=== PATIENT | female | born 1950 | race Caucasian/White ===

== ENCOUNTER 2020-07-26 10:29 | Outpatient (CLI) | payer MEDICARE, OTHER, SELFPAY ==
--- NOTE | ~2020-07-26 | MM_ITS ---
EXAMINATION: MM screening shivani BI w collin HISTORY: Screening mammogram TECHNIQUE: Craniocaudal and mediolateral oblique 3-D tomosynthesis images were obtained and synthetic 2-D images were generated. CAD analysis was submitted and interpreted. COMPARISON: 10/01/2018, 06/17/2017, 04/30/2016 bilateral digital screening mammogram examinations BREAST PARENCHYMAL COMPOSITION: There are scattered areas of fibroglandular density. FINDINGS: There is no evidence of suspicious mass, calcification, or architectural distortion to sugg est malignancy in either breast. There has been no suspicious interval change. IMPRESSION: 1. No mammographic evidence of malignancy. 2. Recommend routine screening mammography in one year. BI-RADS Category 1: Negative Reviewed, dictated and finalized at location A. SFORMER MAKER
== END 2020-07-26 10:30 | disposition home or self-care (01) ==
LOC: ANHIMG 10:39
PROVIDERS: PCP Family Medicine; Visit Provider Obstetrics & Gynecology
DX: Z12.31 Encounter for screening mammogram for malignant neoplasm of breast (principal)
CPT/HCPCS: 77063; 77067

== ENCOUNTER 2021-10-28 13:23 | Emergency (ER) | payer MEDICARE, OTHER, SELFPAY ==
--- NOTE | ~2021-10-28 | CT_ITS ---
EXAMINATION: CT abdomen pelvis w con EXAM DATE: 10/28/2021 15:04 INDICATION: abdominal pain , body aches. Nausea and diarrhea fever and chills. TECHNIQUE: Spiral CT of the abdomen and pelvis was performed following intravenous injection of 100 m L Omnipaque 350. Axial, coronal and sagittal images of the abdomen and pelvis were reviewed. The do se-length product (DLP) for this examination was 832.38 mGy-cm. The exposure was tailored according to patient size (auto mA exposure control), and iterative reconstruction (ASIR) was used as additiona l dose reduction technique. There is no prior study for comparison. FINDINGS: The liver, spleen, adrenal glands and pancreas are unremarkable. Gallbladder is unremarkab le. No biliary obstruction. Portal and splenic veins are patent. Kidneys enhance symmetrically. T here is no hydronephrosis. Uterus and bladder poorly visualized due to dense metallic artifact from bilateral hip replacements. There is no retroperitoneal or pelvic lymphadenopathy. Small umbilical fa t-containing hernia. The appendix is normal. The stomach and small bowel are unremarkable. There is ascending and transve rse colonic fluid, possible gastroenteritis. No free intraperitoneal gas. The heart is normal in si ze. There are no pericardial or pleural effusions. The lung bases are unremarkable. There are no o steoblastic or osteolytic lesions identified. IMPRESSION: 1. Possible gastroenteritis. Reviewed, dictated and finalized at location A. SOMNOGRAPHIC TECHNOLOGIST
--- NOTE | ~2021-10-28 | CT_ITS ---
EXAMINATION: CT brain wo con INDICATION: Headache COMPARISON: None TECHNIQUE: Standard unenhanced head CT. The dose-length product (DLP) was 605.33 mGy-cm. The mA was a djusted according to patient size. Iterative reconstruction technique was employed. FINDINGS: There is no acute intraparenchymal hemorrhage. No evidence of mass lesion. No evidence of a cute infarction. There is mild periventricular and subcortical hypodensity probably related to small vessel ischemic disease. There is mild prominence of the sulci and ventricles related to cerebral atr ophy. Intracranial calcified cerebral atherosclerosis is noted. There are no extra-axial collections. There is no mass effect or midline shift. The orbits and soft tissues are unremarkable. The visualiz ed sinuses and mastoid air cells are well aerated. IMPRESSION: 1. No acute intracranial abnormality. 2. Age related findings. Reviewed, dictated and finalized at location F. COLLECTOR ORE CRUSHING
[2021-10-28 13:27] VITALS: BP 104/51; PULSE 91; RESP 16; TEMP 36.9; O2SAT 99
[2021-10-28] MEDS: SODIUM CHLORIDE 0.9% IV 1,000 ML 999 ML IV CONT ×2 (13:47→15:35)
--- NOTE | 2021-10-28 13:52 | ED.NAVMDI ---
HPI - Nausea/Vomiting/Diarrhea General Chief complaint: Nausea/Vomiting/Diarrhea Stated complaint: painting/body aches and spasms, vomiting Time Seen by Provider: 10/28/21 13:31 Source: patient History of Present Illness HPI Narrative: Patient presents with not feeling well. Reports not been feeling well for the past 3 days. She for headache as she has a history of migraines but also reports stomach pain from the inside . Reports associated diarrhea diffuse body aches and muscle cramping. She denies any urinary symptoms she reports a decrease in appetite and reports a fever. Denies cough or congestion she took a home Covid test and was negative Related Data Home Medications Medication Instructions Recorded Confirmed alprazolam 0.5 mg tablet 0.5 mg PO DAILY 08/05/19 02/15/21 clobetasol 0.05 % topical cream 1 applic TOPICAL BID 08/05/19 02/15/21 multivitamin 1 tablet PO DAILY 08/05/19 02/15/21 tizanidine 4 mg capsule 4 mg PO TID PRN 08/05/19 02/15/21 Allergies Allergy/AdvReac Type Severity Reaction Status Date / Time naproxen Allergy Unknown Pt does Verified 08/15/21 13:55 not remember reaction Review of Systems Review of Systems: CONSTITUTIONAL: Fevers and chills EYES: Denies visual changes, redness, or discharge. ENT: Denies rhinorrhea, congestion, sore throat, or otalgia. CARDIOVASCULAR: Denies chest pain, palpitations, or edema. RESPIRATORY: Denies cough or dyspnea. GASTROINTESTINAL: Reports abdominal pain and diarrhea GENITOURINARY: Denies dysuria or hematuria. SKIN: Denies rash or itching. MUSCULOSKELETAL: Denies back pain, joint pain. NEUROLOGIC: Denies, numbness, dizziness, or weakness. PSYCHIATRIC: Denies anxiety or depression. All systems reviewed & are unremarkable except as noted in HPI and below PMFSH Surgical History Surgical History H/O dilation and curettage History of hip replacement History of hip replacement Hx of tonsillectomy Family History Family History Mother Family history of lung cancer, Onset Age: 78 Father Family history of type 2 diabetes mellitus, Onset Age: 63 Social History Social History Smoking status: Never smoker Alcohol intake: never Exam Narrative: GENERAL: Well-appearing, well-nourished, and in no acute distress. HEAD: Normocephalic, atraumatic. EYES: PERRLA and EOMI. ENT: Nares clear, no rhinorrhea or epistaxis. Mucous membranes moist. NECK: Supple. No masses. No JVD CHEST: Clear to auscultation. No respiratory distress. No wheezes rales or rhonchi HEART: Regular rate and rhythm. No murmur heard. Normal peripheral pulses. ABDOMEN: Soft, nontender, nondistended, normal active bowel sounds. EXTREMITIES: Normal range of motion. No edema. SKIN: Warm, dry, no rash. NEURO: No nerves II through XII are intact patient is 5 out of 5 strength in all extremities sensation intact to light touch in all extremities alert and oriented x3. PSYCH: Normal mood and affect. Course Reevaluation(s) Reevaluation #1: Patient appears to be improved results and plan reviewed with patient patient is comfortable outpatient plan. Date: 10/28/21 Time: 15:42 Vital Signs Vital signs: Vital Signs Temperature 36.9 C 10/28/21 13:27 Pulse Rate 91 10/28/21 13:27 Respiratory Rate 16 10/28/21 13:27 Blood Pressure 104/51 L 10/28/21 13:27 Pulse Oximetry 99 10/28/21 13:27 Temperature 36.9 C 10/28/21 13:27 Pulse Rate 91 10/28/21 13:27 Respiratory Rate 16 10/28/21 13:27 Blood Pressure 104/51 L 10/28/21 13:27 Pulse Oximetry 99 10/28/21 13:27 MDM - Nausea/Vomiting/Diarrhea MDM Narrative Medical decision making narrative: H&P as above, vss, pt looks clinically well, exam reassuring, labs clinically unremarkable, img with concern for gastroenteritis, additional labs/img considered, s
[2021-10-28 14:01] LABS: Basophils Percent Auto 0.5 % (0.2-1.2); Eosinophils Percent Auto 0.1 % (0-4.4); Hematocrit 35.6 % (37.0-47.0); Hemoglobin 12.3 g/dL (12.0-15.0); Immature Granulocyte Absolute 0.05 K/mm3 (0.00-0.031); Immature Granulocyte Percent A 0.6 % (0-0.5); Lymphocytes Absolute Auto 0.74 K/mm3 (0.9-3.2); Lymphocytes Percent Auto 8.5 % (18.3-44.2); Mean Corpuscular HGB Conc 34.6 g/dl (32-36); Mean Corpuscular Hemoglobin 31.2 pg (26-34); Mean Corpuscular Volume 90.4 fl (80-100); Mean Platelet Volume 9.9 fl (7.4-10.4); Monocytes Absolute Auto 0.9 K/mm3 (0.1-0.6); Monocytes Percent Auto 10.7 % (2.6-8.5); Neutrophils Absolute Auto 6.9 K/mm3 (1.3-6.7); Neutrophils Percent Auto 79.6 % (45.5-73.1); Platelet Count Result 173 k/mm3 (150-375); Red Blood Count 3.94 M/mm3 (4.2-5.4); Red Cell Distribution Width 13.2 % (11.5-14.5); White Blood Count 8.7 K/mm3 (4.5-10.0)
[2021-10-28 14:10] LABS: Alanine Aminotransferase 25 U/L (4-35); Albumin Level 3.9 g/dL (3.5-5.1); Alkaline Phosphatase 93 U/L (38-126); Anion Gap 12 mmol/L (8-16); Aspartate Amino Transferase 39 U/L (14-36); Bilirubin,Total 0.6 mg/dL (0.2-1.3); Blood Urea Nitrogen 8 mg/dL (7-17); Calcium 9.1 mg/dL (8.4-10.2); Carbon Dioxide 24 mmol/L (22-30); Chloride 96 mmol/L (98-107); Estimated CRCL calculation 68 ml/min; Estimated Glomerular Filt Rate > 60; Glucose 132 mg/dL (65-110); Lipase 54 U/L (23-300); Potassium 3.1 mmol/L (3.4-5.0); Sodium 132 mmol/L (137-145)
[2021-10-28 14:58] LABS: Add Urine Microscopic? YES; Appearance Urine Clear (Clear); Bilirubin Urine Negative (Negative); Blood Urine 1+ (Negative); Color Urine Amber (Yellow); Glucose Urine UA Negative (Negative); Hyaline Casts Urine 20-29 /lpf; Ketones Urine Trace mg/dL (Negative); Leukocyte Esterase Ur Negative LEU/UL (Negative); Mucus Urine Rare /lpf; Nitrate Urine Negative (Negative); Protein Urine 2+ mg/dL (Negative); Specific Grav Ur 1.029 (1.001-1.035); Squamous Epithelial Cell Urine Rare /hpf (Few); Urobilinogen Urine Negative mg/dL (<2.0); WBC Urine 0-3 /hpf
== END 2021-10-28 16:38 | disposition home or self-care (01) ==
PROVIDERS: Emergency Provider Emergency Medicine; PCP Family Medicine
DX: K52.9 Noninfective gastroenteritis and colitis, unspecified (principal); Z96.649 Presence of unspecified artificial hip joint
CPT/HCPCS: 36415; 70450; 74177; 80053; 81001; 83690; 85025; 96361; 96374; 99284; J0131; J7030; Q9967

== ENCOUNTER 2022-03-07 09:34 | Outpatient (CLI) | payer MEDICARE, OTHER, SELFPAY ==
--- NOTE | ~2022-03-07 | MM_ITS ---
EXAMINATION: MM screening shivani BI w collin HISTORY: Screening TECHNIQUE: Craniocaudal and mediolateral oblique 3-D tomosynthesis images were obtained and synthetic 2-D images were generated. CAD analysis was submitted and interpreted. COMPARISON: Comparison to multiple prior studies sequentially, with oldest reviewed study dated 10/13. BREAST PARENCHYMAL COMPOSITION: Breast composed of scattered areas of fibroglandular density FINDINGS: There is no evidence of suspicious mass, calcification, or architectural distortion to sugg est malignancy in either breast. There has been no suspicious interval change. IMPRESSION: 1. No mammographic evidence of malignancy. 2. Recommend routine screening mammography in one year. BI-RADS Category 1: Negative Reviewed, dictated and finalized at location A.
== END 2022-03-07 09:35 | disposition home or self-care (01) ==
LOC: ANHIMG 09:35
PROVIDERS: PCP Family Medicine; Visit Provider Obstetrics & Gynecology
DX: Z12.31 Encounter for screening mammogram for malignant neoplasm of breast (principal)
CPT/HCPCS: 77063; 77067

== ENCOUNTER 2023-06-17 13:38 | Emergency (ER) | payer MEDICARE, OTHER, SELFPAY ==
--- NOTE | 2023-06-17 13:41 | ED.FALL ---
HPI - Fall General Chief Complaint: Wound/Laceration Stated Complaint: FALL/EYEBROW LACERATION Time Seen by Provider: 06/17/23 13:40 Source: patient Mode of arrival: ambulatory Limitations: no limitations History of Present Illness HPI Narrative: Patient is a 72-year-old female who presents with laceration under right eyebrow after fall today. Denies any LOC and does not currently have headache, nausea removed reading. States she tripped and fell did not feel dizzy at that time. Unsure if it was the concrete or her glasses her face. Patient reports swelling area and constant patient ooze from wound. Patient is not up-to-date on tetanus Related Data Home Medications Medication Instructions Recorded Confirmed clobetasol 0.05 % topical cream 1 applic topical BID 08/05/19 04/01/23 multivitamin 1 tablet PO DAILY 08/05/19 04/01/23 tizanidine 4 mg capsule 4 mg PO TID PRN 08/05/19 04/01/23 azelastine 0.05 % eye drops drp 06/17/23 folic acid 1 mg tablet 06/17/23 hydroxyzine HCl 25 mg tablet mg 06/17/23 Allergies Allergy/AdvReac Type Severity Reaction Status Date / Time naproxen Allergy Unknown Unknown Verified 06/17/23 13:45 Review of Systems Review of Systems: All systems reviewed & are unremarkable except as noted in HPI and below Constitutional: Constitutional: Denies body ache(s), Denies chills, Denies fatigue, Denies fever(s), Denies headache(s), Denies malaise and Denies weakness Eyes: Eyes: Denies blurry vision, Denies irritation and Denies loss of vision ENT: Denies otalgia, Denies headache(s), Denies nasal discharge, Denies sinus pain and Denies sore throat Cardiovascular: Cardiovascular: Denies chest pain, Denies irregular heart rhythm and Denies dyspnea Respiratory: Respiratory: Denies dyspnea Gastrointestinal: Gastrointestinal: Denies abdominal pain, Denies melena, Denies hematochezia, Denies diarrhea, Denies nausea and Denies vomiting Musculoskeletal: Musculoskeletal: Denies back pain, Denies myalgias and Denies arthralgias Integumentary/Breasts: Skin/Breast: Denies pruritus, Denies rash and Reports wounds Neurologic: Denies headache(s), Denies loss of vision and Denies weakness Psychiatric: Psychiatric: Reports no additional psychiatric complaints Endocrine: Endocrine: Denies fatigue PMFSH Surgical History Surgical History H/O dilation and curettage History of hip replacement History of hip replacement Hx of tonsillectomy Family History Family History Mother Family history of lung cancer, Onset Age: 78 Father Family history of type 2 diabetes mellitus, Onset Age: 63 Social History Social History Smoking status: Never smoker Alcohol intake: never Lack of Transportation: No Lack of Food: Never True Current Housing: I Have Housing Concerned About Future Housing: No Difficulty Paying Gas/Electric Bills: No Difficulty Paying for Meds: No Currently Unemployed: No Education: Associate Degree Difficulty w/ Childcare or Family Care: No Comments At time of signature, agree with nursing past medical, surgical, social and family history. There is no relevant family history pertinent to the presenting complaint. Exam Const: General: cooperative, healthy appearing, comfortable, no acute distress and well nourished Nutritional Appearance: well nourished Orientation/consciousness: patient oriented x3 Limitations: no limitations HENMT: Head: normal to inspection, normocephalic and atraumatic Ears: hearing grossly normal bilaterally and external ears normal Face/Nose/Sinus: Normal external nose present, normal facial exam and face symmetric Face and sinus: normal facial exam and face symmetric Mouth: Yes lip normal Eyes: General: appearance normal, both eyes and all related structures Alignment and Positi
[2023-06-17 13:47] VITALS: BP 103/83; PULSE 72; RESP 18; TEMP 36.7; O2SAT 95
[2023-06-17] MEDS: TETANUS/DIPHTHERIA TOXOIDS ADSORB 0.5 ML VIAL (*BKC) IM (14:49)
== END 2023-06-17 15:10 | disposition home or self-care (01) ==
PROVIDERS: Emergency Provider Nurse Practitioner Family; PCP Emergency Medicine
DX: S01.111A Laceration without foreign body of right eyelid and periocular area, initial encounter (principal); W01.0XXA Fall on same level from slipping, tripping and stumbling without subsequent striking against object, initial encounter; Z23 Encounter for immunization
CPT/HCPCS: 12011; 90471; 90714; 99212; G0463

== ENCOUNTER 2023-08-28 11:00 | Outpatient (RCR) | payer MEDICARE, OTHER, SELFPAY ==
[2023-08-08 14:30] VITALS: BP_SYST 150
--- NOTE | 2023-08-08 15:29 | OPREHPOC ---
Outpatient Therapy Plan of Care This is a Multidisciplinary Plan of Care that may contain components documented by all disciplines (PT, OT, and ST.) PT Problem 1 PT Problem #1 Knowledge Deficit PT Goal 1 Goal 1* indep with HEP PT Problem 2 PT Problem #2 Impaired Flexibility PT Goal 1 Goal increase L shoulder ROM to improve ability for self care and home tasks: standing active ROM: 1* flexion 145' 2* abduction 145' 3* IR- reach behind back, fingers to mid scapula PT Problem 3 PT Problem #3 Impaired Strength PT Goal 1 Goal increase strength of L shoulder, to improve home and self care task performance, with reaching: --pt perform in standing 5 reps: 1* flexion with 3# hand wt to 120' 2* abduction with 2# hand wt to 120' 3* pt report no issues with performing home and kitchen activities 4* pt maintain good position of shoulder with exercises
--- NOTE | 2023-08-08 15:29 | PTOPEVAL1 ---
Assessment and note entered by Shilpa Lala, PT Evaluation Information Assessment Status Evaluation Diagnosis s/p L total shoulder replacement Onset 05-24-23 Subjective Information have been using her L arm at home; she is R handed; per pt--no longer using sling after 07-22-23 dr dias, have 5# lifting restriction; exercises doing at home: pully- forward, standing ER with elbow at side, reaching behind back, and actively use arm with home; is leaving for [place] Sep 07; hopes to be done with therapy by then; ACTIVITY: active lifestyle prior to surgery, retired and home with NOW- only thing not doing is lifting-- does lifting over 5#; Reported Pain Level Pain Score 0: Self Report Additional Pain Score Comments reports no pain in her L shoulder; is able to lie and sleep on her L side; with exercises report tightness in shoulder does not take any pain meds or ice; does have neck pain--go to chiropractor and pain management, is about time for her next injection. Assessment PT Clinical Summary Shannen is s/p L total shoulder replacement/ anatomical. Prior to surgery, she was active and retired. She has started doing exercises at home, that told her to do. At home, she is doing all of her home tasks and self care, but lifting--not over 5# She does not have any pain in her shoulder. Quick Dash self assessment score of 0% limitation in activity. With the evaluation: active L shoulder ROM: flexion 115', abduction 105 and passive 150' for both; with active motion, she tends to elevate shoulder and poor activation of rotator cuff musculature; there is not any tenderness to palpation over shoulder. Skilled PT services are indicated for therapeutic exercises to increase shoulder ROM and strength, with modalities PRN and education for posture and HEP. Plan of Care Interventions Elec
--- NOTE | 2023-08-16 10:34 | PCPTNOTE ---
Pt. called this date to cancel her Physical therapy appointment due to having a headache.
--- NOTE | 2023-08-30 11:05 | PTOPDC ---
Assessment and note entered by Shilpa Lala, PT Discharge Information Assessment Status Discharge - Pt Not Present Diagnosis s/p L total shoulder replacement Onset 05-24-23 Assessment PT Clinical Summary Shannen has received 3 PT sessions. She called today and canceled her reevaluation appt due to illness. I called and talked with her. She reports doing well with her HEP and feels like she does not need any further therapy. And will be going to [place] next week. Shannen has been educated and is independent with her HEP. The goals were not addressed. Discharge PT at this time. Plan of Care PT Services Indicated No
== END 2023-08-30 14:25 | disposition home or self-care (01) ==
LOC: ANHPT 11:00
PROVIDERS: PCP Emergency Medicine
DX: Z47.1 Aftercare following joint replacement surgery (principal); Z96.612 Presence of left artificial shoulder joint
CPT/HCPCS: 97110; 97161; 97530

== ENCOUNTER 2023-09-02 14:36 | Emergency (ER) | payer MEDICARE, OTHER, SELFPAY ==
--- NOTE | 2023-09-02 14:41 | ED.URI ---
HPI - URI/Sore Throat General Chief Complaint: Upper Respiratory Infection Stated Complaint: congestion,cough,ears clogged Time Seen by Provider: 09/02/23 15:08 Source: patient and RN notes reviewed Mode of arrival: ambulatory Limitations: no limitations History of Present Illness HPI Narrative: 72-year-old female presents with concern for 2 week history of nasal congestion, drainage, clogged ears, cough. Reports she has been taking [id number] medications without much relief, been using Neti pot without relief. MD elicited complaint: cough, nasal congestion and sinus pain Related Data Home Medications Medication Instructions Recorded Confirmed clobetasol 0.05 % topical cream 1 applic topical BID 08/05/19 09/02/23 multivitamin 1 tablet PO DAILY 08/05/19 09/02/23 tizanidine 4 mg capsule 4 mg PO TID PRN (Drug) Ingestion 08/05/19 09/02/23 azelastine 0.05 % eye drops 1 drp EACH EYE DAILY 06/17/23 09/02/23 folic acid 1 mg tablet 1 mg PO DAILY 06/17/23 09/02/23 hydroxyzine HCl 25 mg tablet 25 mg PO DAILY 06/17/23 09/02/23 Allergies Allergy/AdvReac Type Severity Reaction Status Date / Time naproxen Allergy Unknown Unknown Verified 09/02/23 14:50 Review of Systems Review of Systems: CONSTITUTIONAL: Reports malaise, chills EYES: Denies visual changes, redness, or discharge. ENT: Reports rhinorrhea, congestion, sinus pain, otalgia CARDIOVASCULAR: Denies chest pain, palpitations, or edema. RESPIRATORY: Reports cough. Denies dyspnea. GASTROINTESTINAL: Denies abdominal pain, nausea, vomiting, diarrhea SKIN: Denies rash or itching. MUSCULOSKELETAL: Denies myalgia. NEUROLOGIC: Denies headache. All systems reviewed & are unremarkable except as noted in HPI and below PMFSH Surgical History Surgical History H/O dilation and curettage History of hip replacement History of hip replacement Hx of tonsillectomy Family History Family History Mother Family history of lung cancer, Onset Age: 78 Father Family history of type 2 diabetes mellitus, Onset Age: 63 Social History Social History Smoking status: Never smoker Alcohol intake: never Lack of Transportation: No Lack of Food: Never True Current Housing: I Have Housing Concerned About Future Housing: No Difficulty Paying Gas/Electric Bills: No Difficulty Paying for Meds: No Currently Unemployed: No Education: Associate Degree Difficulty w/ Childcare or Family Care: No Comments At time of signature, agree with nursing past medical, surgical, social and family history. There is no relevant family history pertinent to the presenting complaint Exam Narrative: GENERAL: Well-appearing, well-nourished, and in no acute distress. HEAD: Normocephalic EYES: PERRLA, conjunctivae clear ENT: Nares clear, turbinates edematous and erythematous. Mucous membranes moist. TM pearly maki with dull light reflex bilaterally; no tragal tenderness. Oropharynx not erythematous without lesions. Tonsils not enlarged and without exudate, no drooling, no hoarseness, no trismus, uvula midline. NECK: Supple. No lymphadenopathy CHEST: Clear to auscultation, breath sounds equal. No wheezing, rhonchi, rales, or stridor. No respiratory distress, speaks in full sentences. HEART: Regular rate and rhythm. No murmur heard. SKIN: Warm, dry, no rash. NEURO: Alert and oriented x3. PSYCH: Normal mood and affect Course Course Emergency Course: Patient is aware of diagnosis, understands and agrees to treatment plan. Anticipatory guidance given. Patient agrees to follow-up as directed and is aware of reasons to seek care at the emergency department. Portions of this record may have been created with voice recognition software Level of Care: Express Care Visit Vital Signs Vital signs: Reviewed. DAVEY - CINDYI/Maycol
[2023-09-02 14:55] VITALS: BP 127/80; PULSE 89; RESP 16; TEMP 37.2; O2SAT 97
== END 2023-09-02 15:26 | disposition home or self-care (01) ==
PROVIDERS: Emergency Provider Nurse Practitioner; PCP Emergency Medicine
DX: J32.9 Chronic sinusitis, unspecified (principal); Z79.899 Other long term (current) drug therapy
CPT/HCPCS: 99213; G0463

== ENCOUNTER 2024-02-05 16:12 | Outpatient (CLI) | payer MEDICARE, OTHER, SELFPAY ==
--- NOTE | ~2024-02-05 | MM_ITS ---
EXAMINATION: MM screening shivani BI w collin HISTORY: Screening TECHNIQUE: Craniocaudal and mediolateral oblique 3-D tomosynthesis images were obtained and synthetic 2-D images were generated. CAD analysis was submitted and interpreted. COMPARISON: Comparison to multiple prior studies sequentially, with oldest reviewed study dated 06/02. BREAST PARENCHYMAL COMPOSITION: Not dense: There are scattered areas of fibroglandular density. FINDINGS: There is no evidence of suspicious mass, calcification, or architectural distortion to sugg est malignancy in either breast. There has been no suspicious interval change. IMPRESSION: 1. No mammographic evidence of malignancy. 2. Recommend routine screening mammography in one year. BI-RADS Category 1: Negative Reviewed, dictated and finalized at location B.
== END 2024-02-05 16:13 | disposition home or self-care (01) ==
LOC: ANHIMG 16:14
PROVIDERS: PCP Emergency Medicine; Visit Provider Obstetrics & Gynecology
DX: Z12.31 Encounter for screening mammogram for malignant neoplasm of breast (principal)
CPT/HCPCS: 77063; 77067

== ENCOUNTER 2024-05-02 20:23 | Inpatient (IN) | payer MEDICARE, OTHER, SELFPAY ==
--- NOTE | ~2024-05-02 | XR_ITS ---
Portable chest x-ray Comparison: 03/21/2009 Clinical History: Status post fall Findings: Lungs are clear, without focal consolidation or pleural effusion. Cardiomediastinal silho uette is stable. Bones and soft tissues are unremarkable. Impression: Normal chest. Reviewed, dictated and finalized at location . Impression: Normal chest.
--- NOTE | ~2024-05-02 | XR_ITS ---
EXAMINATION: XR hip RT 2V w AP pelvis DATE: 05/02/2024 21:17 INDICATION: Right hip pain post fall TECHNIQUE: Anteroposterior view of the pelvis and anteroposterior and cross-table lateral views of th e right hip were obtained. COMPARISON: None. FINDINGS: There are bilateral total hip arthroplasties. There is a periprosthetic fracture extending across the base of the greater trochanter with approximately 9 mm proximal distraction. There is a small amount of lucency along the medial side of the proximal stem of the right femoral component but no evident lucency along the more distal femoral stem to suggest loosening. No other fractures identified. Sever e lower lumbar spondylosis with severe facet osteoarthritis. IMPRESSION: 1. Bilateral total hip arthroplasties with 9 mm proximal distraction of a periprosthetic fracture of the right greater trochanter. Reviewed, dictated and finalized at location A. IMPRESSION: 1. Bilateral total hip arthroplasties with 9 mm proximal distraction of a perip rosthetic fracture of the right greater trochanter.
[2024-05-02 20:26] VITALS: BP 134/74; PULSE 76; RESP 16; TEMP 36.8; O2SAT 93
[2024-05-02] MEDS: ACETAMINOPHEN 500 MG TABLET 1000 MG PO (21:02)
[2024-05-02] MEDS: HYDROmorphone HCL INJ (*CRX) 1 MG/ML SYR 0.5 MG IV PUSH (21:03)
[2024-05-02 21:58] VITALS: BP 150/69; PULSE 77; RESP 19; O2SAT 93
--- NOTE | 2024-05-02 22:09 | PC.NURSE ---
20:26- This RN placed air mattress under pt prior to EMS transfer upon arrival.
--- NOTE | 2024-05-02 22:59 | ECG_ITS ---
Test Date: 2024-05-02 23:14:57 Measurements Intervals [place] Rate: 67 P: 51 MN: 171 QRS: 36 QRSD: 83 T: 54 QT: 373 QTc: 396 Interpretive Statements SINUS RHYTHM BASELINE ARTIFACT- I, II, III, AVR, AVL, AVF NORMAL ECG No previous ECG available for comparison Electronically Signed On 05-03-2024 07:29:06 CDT by Anup Gallagher D.O.
--- NOTE | 2024-05-02 23:20 | ED.GENADULT ---
HPI - General Adult General Chief complaint: Extremity Injury, Lower Stated complaint: FALL, RIGHT HIP PAIN, Hx OF RIGHT THR. Time Seen by Provider: 05/02/24 20:37 History of Present Illness HPI narrative: This is a 73-year-old female history of bilateral hip replacement presenting with hip pain. Patient tripped over a stool landing on her right side. She has been having pain and right hip and has been too much pain to bear weight. She denies head trauma or loss of consciousness. It was a mechanical fall. Patient has a history of hip replacement performed by a Dr. Sousa. Related Data Home Medications Medication Instructions Recorded Confirmed clobetasol 0.05 % topical cream 1 applic topical BID 08/05/19 10/17/23 multivitamin 1 tablet PO DAILY 08/05/19 10/17/23 tizanidine 4 mg capsule 4 mg PO TID PRN (Drug) Ingestion 08/05/19 10/17/23 azelastine 0.05 % eye drops 1 drp EACH EYE DAILY 06/17/23 10/17/23 hydroxyzine HCl 25 mg tablet 25 mg PO DAILY 06/17/23 10/17/23 Allergies Allergy/AdvReac Type Severity Reaction Status Date / Time naproxen Allergy Unknown Unknown Verified 05/02/24 20:36 [facility] Surgical History Surgical History H/O dilation and curettage History of hip replacement History of hip replacement Hx of tonsillectomy Shoulder joint replacement by other means Family History Family History Mother Family history of lung cancer, Onset Age: 78 Father Family history of type 2 diabetes mellitus, Onset Age: 63 Social History Social History Smoking status: Never smoker Alcohol intake: never Lack of Transportation: No Lack of Food: Never True Current Housing: I Have Housing Concerned About Future Housing: No Difficulty Paying Gas/Electric Bills: No Difficulty Paying for Meds: No Currently Unemployed: No Education: Associate Degree Difficulty w/ Childcare or Family Care: No Exam Narrative: APPEARANCE: No apparent distress. Head: atraumatic. EYES: EOMI, NOSE: Atraumatic NECK: Trachea midline RESPIRATORY: No increased rate of breathing CTAB CARDIOVASCULAR: RRR, ABDOMINAL: Non-distended MUSCULOSKELETAl: Focal exam of the lower extremities revealed no shortening. Right leg is propped up on a pillow. The foot is warm and neurovascularly intact. Pain with effort against gravity. NEURO: Alert. Moving 4/4 extremities SKIN:: Warm, dry. Normal color PSYCHIATRIC: Normal affect Course Vital Signs Vital signs: Vital Signs Temperature 98.2 F 05/02/24 20:26 Pulse Rate 76 05/02/24 20:26 Respiratory Rate 16 05/02/24 20:26 Blood Pressure 134/74 05/02/24 20:26 Pulse Oximetry 93 05/02/24 20:26 Oxygen Delivery Room Air 05/02/24 20:26 Temperature 98.2 F 05/02/24 20:26 Pulse Rate 77 05/02/24 21:58 Respiratory Rate 19 05/02/24 21:58 Blood Pressure 150/69 H 05/02/24 21:58 Pulse Oximetry 93 05/02/24 21:58 Oxygen Delivery Room Air 05/02/24 20:26 Medical Decision Making [facility] Narrative Medical decision making narrative: -Course: 73-year-old female presenting with a ground level fall. X-ray showed a 9 mm proximal distraction of a periprosthetic fracture of the right greater trochanter. Patient given pain control. Patient unable to bear weight or ambulate. Patient will be admitted to the hospital. Consult placed to Dr. Garcia. -DDX includes but is not limited to: Hip fracture, periprosthetic fracture, soft tissue injury -Co-morbidities complicating care: Bilateral hip replacements -Independent interpretation of studies: Labs reviewed. Imaging reviewed Independent EKG interpretation: Rhythm [sinus], Rate [67], [place] -[normal], NV -[normal], QRS [narrow], QTC [normal], T waves -[negative for concerning inversions], ST Segments - [Negative for concerning elevations] Final interpreta
[2024-05-02 23:40] LABS: Basophils Percent Auto 0.5 % (0.2-1.2); Eosinophils Absolute Auto 0.1 K/mm3 (0-0.3); Eosinophils Percent Auto 1.4 % (0-4.4); Immature Granulocyte Absolute 0.01 K/mm3 (0.00-0.031); Immature Granulocyte Percent A 0.2 % (0-0.5); Lymphocytes Absolute Auto 1.21 K/mm3 (0.9-3.2); Lymphocytes Percent Auto 18.3 % (18.3-44.2); Mean Corpuscular HGB Conc 32.4 g/dl (32-36); Mean Corpuscular Hemoglobin 27.7 pg (26-34); Mean Corpuscular Volume 85.6 fl (80-100); Mean Platelet Volume 9.4 fl (7.4-10.4); Monocytes Absolute Auto 0.5 K/mm3 (0.1-0.6); Neutrophils Absolute Auto 4.7 K/mm3 (1.3-6.7); Neutrophils Percent Auto 71.6 % (45.5-73.1); Platelet Count Result 240 k/mm3 (150-375); Red Blood Count 3.97 M/mm3 (4.2-5.4); Red Cell Distribution Width 14.8 % (11.5-14.5); White Blood Count 6.6 K/mm3 (4.5-10.0)
[2024-05-02 23:45] LABS: Alanine Aminotransferase 18 U/L (6-35); Albumin Level 3.7 g/dL (3.5-5.1); Alkaline Phosphatase 102 U/L (38-126); Anion Gap 5 mmol/L (4-12); Aspartate Amino Transferase 31 U/L (14-36); Bilirubin,Total 0.1 mg/dL (0.2-1.3); Blood Urea Nitrogen 17 mg/dL (7-17); Calcium 8.9 mg/dL (8.4-10.2); Carbon Dioxide 29 mmol/L (22-30); Chloride 103 mmol/L (98-107); Estimated CRCL calculation 54 ml/min; Estimated Glomerular Filt Rate > 60; Glucose 116 mg/dL (65-110); Potassium 4.2 mmol/L (3.4-5.0); Sodium 137 mmol/L (137-145)
[2024-05-03] VITALS (7 sets, daily range): BP systolic 109–127; BP diastolic 58–91; PULSE 69–89; RESP 13–18; TEMP 36.6–37; O2SAT 94–97; BMI 27.8
--- NOTE | 2024-05-03 00:40 | PM.IMHP ---
H&P: HPI History of Present Illness Date/Time: 05/03/24 00:40 Chief Complaint: Fall Right hip pain Narrative: This very pleasant 73-year-old female patient with past medical history significant of bilateral total hip arthroplasties previously, seasonal allergies, HTN, Depression, Anxiety and GERD who presented to the emergency room this evening with complaints of sustaining a ground level fall at home when she tripped over 80 binge. Patient states she landed face forward with her right leg bent. She did not have any facial trauma or head trauma or loss of consciousness. Patient states since the fall she has had pain in her right hip which caused her to present to the emergency room for evaluation. In the emergency room workup was performed with x-ray of the hip and pelvis that demonstrated bilateral total hip arthroplasties with a 9 mm proximal destruction of a periprosthetic fracture of the right greater trochanter. Preliminary read of chest x-ray by myself indicates no acute cardiopulmonary abnormalities. Official read is pending. Labs were performed and CBC is unremarkable as is metabolic panel. ER physician discussed patient's case with orthopedic surgeon Dr. Garcia, who advised to admit and he will consult. Patient does not have any acute complaints at this time other than the pain in her right hip. Review of Systems Review of Systems: All systems reviewed & are unremarkable except as noted in HPI and below PMFSH Past Medical History Medical History (Updated 05/03/24 @ 00:53 by JULIETH Paris) Fall Surgical History Surgical History H/O dilation and curettage History of hip replacement History of hip replacement Hx of tonsillectomy Shoulder joint replacement by other means Family History Family History Mother Family history of lung cancer, Onset Age: 78 Father Family history of type 2 diabetes mellitus, Onset Age: 63 Social History Social History Smoking status: Never smoker Alcohol intake: never Lack of Transportation: No Lack of Food: Never True Current Housing: I Have Housing Concerned About Future Housing: No Difficulty Paying Gas/Electric Bills: No Difficulty Paying for Meds: No Currently Unemployed: No Education: Associate Degree Difficulty w/ Childcare or Family Care: No Meds Home Medications and Allergies Home Medications Medication Instructions Recorded Confirmed Type clobetasol 0.05 % topical cream 1 applic topical BID 08/05/19 10/17/23 History multivitamin 1 tablet PO DAILY 08/05/19 10/17/23 History tizanidine 4 mg capsule 4 mg PO TID PRN (Drug) Ingestion 08/05/19 10/17/23 History fluticasone propionate 50 See Rx Instructions .Route 06/11/22 10/17/23 Rx mcg/actuation nasal .COMPLEX #48 mL spray,suspension azelastine 0.05 % eye drops 1 drp EACH EYE DAILY 06/17/23 10/17/23 History hydroxyzine HCl 25 mg tablet 25 mg PO DAILY 06/17/23 10/17/23 History losartan 25 mg tablet 25 mg PO DAILY #90 tabs 12/27/23 Rx simvastatin 20 mg tablet 20 mg PO DAILY #90 tabs 01/09/24 Rx lwwjmlz-byspiwahgn-TBL-caffeine 30 1 cap PO Q4H PRN headache #180 caps 01/24/24 Rx mg-50 mg-325 mg-40 mg capsule (Ascomp with Codeine) montelukast 10 mg tablet 10 mg PO DAILY #90 tabs 03/30/24 Rx (Singulair) sertraline 100 mg tablet See Rx Instructions .Route 03/30/24 Rx .COMPLEX #180 tabs atenolol 25 mg tablet See Rx Instructions .Route 03/31/24 Rx .COMPLEX #90 tabs celecoxib 200 mg capsule (Celebrex) 200 mg PO BID #180 caps 04/06/24 Rx amitriptyline 25 mg tablet 25 mg PO QHS #90 tabs 04/20/24 Rx pantoprazole 40 mg tablet,delayed See Rx Instructions .Route 04/29/24 Rx release .COMPLEX #90 tabs Allergies Allergy/AdvReac Type Severity Reaction Status Date / Time naproxen A
[2024-05-03 01:01] LABS: Add Urine Microscopic? NO; Bilirubin Urine Negative (Negative)
[2024-05-03 01:02] LABS: Appearance Urine Clear (Clear); Bacteria Urine None Seen /hpf; Color Urine Yellow (Yellow); Non Pathogenic Casts 0-2; Protein Urine Negative (Negative); RBC Urine 0-2 /hpf (0-2); Specific Grav Ur 1.025 (1.001-1.035); Squamous Epithelial Cell Urine None Seen /hpf (Few); WBC Urine 0-5 /hpf (0-3); pH Urine 5.5 (5.0-9.0)
[2024-05-03 01:03] LABS: Blood Urine Negative (Negative); Glucose Urine UA Negative (Negative); Ketones Urine Trace mg/dL (Negative); Leukocyte Esterase Ur Negative LEU/UL (Negative); Nitrate Urine Negative (Negative); Urobilinogen Urine 0.2 mg/dL (<2.0)
[2024-05-03] MEDS: HYDROmorphone HCL INJ (*CRX) 1 MG/ML SYR 0.5 MG IV PUSH (01:06)
--- NOTE | 2024-05-03 01:38 | ADMGEN ---
This patient, Shannen Shanks, was admitted to [facility] Surg Room 323-02. Patient/family oriented to hospital policies and general routines including ID bracelet, bed and alarms, visiting hours, pain management, procedures, bathroom and other care routines, personal items, smoking policy, room service/diet, and visiting hours. Information on how to activate the Rapid Response Team has been discussed. Patient/Family are encouraged to report perceived risks to care and to ask questions if they do not understand what they are told or what they should do.
[2024-05-03] MEDS: diphenhydrAMINE HCl INJ 50 MG/ML VIAL IV PUSH (03:05)
[2024-05-03] MEDS: PANTOPRAZOLE 40 MG TABLET PO (08:17)
[2024-05-03] MEDS: ACETAMINOPHEN 325 MG TABLET 650 MG PO (08:20)
[2024-05-03] MEDS: traMADol HCL (*CRX) 50 MG TABLET PO (08:20)
--- NOTE | 2024-05-03 09:08 | PM.IMPN ---
Progress Note: A&P Assessment and Plan (1) Hip fracture: Code(s): S72.009A - Fracture of unspecified part of neck of unspecified femur, initial encounter for closed fracture Status: Acute Assessment and Plan: Status post fall Consult orthopedics, Dr. Jose Prado pain meds P.r.n. antiemetics Bedrest Iverson catheter (2) Fall: Code(s): W19.XXXA - Unspecified fall, initial encounter Status: Acute Assessment and Plan: Mechanical as patient tripped over a bench at home. See plan for 1. Fall precautions (3) Gastro-esophageal reflux disease without esophagitis: Code(s): K21.9 - Gastro-esophageal reflux disease without esophagitis Status: Chronic Assessment and Plan: Protonix 40 mg daily ordered. (4) Mixed hyperlipidemia: Code(s): E78.2 - Mixed hyperlipidemia Status: Chronic Assessment and Plan: Heart healthy diet Resume home medications once verified by nursing staff. (5) Major depressive disorder, recurrent episode, mild with anxious distress: Code(s): F33.0 - Major depressive disorder, recurrent, mild Status: Chronic Assessment and Plan: Resume home medications once verified by nursing staff. Time Spent With Patient Time with patient: Greater than 35 minutes Subjective Date/time seen: 05/03/24 09:08 Interval history: Fall Right hip pain Narrative retrieved from H/P: This very pleasant 73-year-old female patient with past medical history significant of bilateral total hip arthroplasties previously, seasonal allergies, HTN, Depression, Anxiety and GERD who presented to the emergency room this evening with complaints of sustaining a ground level fall at home when she tripped over 80 binge. Patient states she landed face forward with her right leg bent. She did not have any facial trauma or head trauma or loss of consciousness. Patient states since the fall she has had pain in her right hip which caused her to present to the emergency room for evaluation. In the emergency room workup was performed with x-ray of the hip and pelvis that demonstrated bilateral total hip arthroplasties with a 9 mm proximal destruction of a periprosthetic fracture of the right greater trochanter. Preliminary read of chest x-ray by myself indicates no acute cardiopulmonary abnormalities. Official read is pending. Labs were performed and CBC is unremarkable as is metabolic panel. ER physician discussed patient's case with orthopedic surgeon Dr. Garcia, who advised to admit and he will consult. Patient does not have any acute complaints at this time other than the pain in her right hip. 05/03- pt is seen and examined. Ortho is consulted. Pain is controlled. no n/v/d. Review of Systems Review of Systems: All systems reviewed & are unremarkable except as noted in HPI and below Exam Narrative: CONSTITUTIONAL: Pleasant, elderly, female patient lying supine in this time on the stretcher in no acute distress. HEENT: Head is atraumatic and normocephalic. Nose and ears are symmetric about the face. Posterior oropharynx is clear without any erythema, edema or exudate. Are moist mucous membranes. EYES: PERRLA, EOMs intact, no nystagmus. There is no discharge from the ice. NECK: Patient moves neck in a full and supple range of motion in all directions without deficit. There is no lymphadenopathy, thyromegaly or JVD appreciated. RESPIRATORY: Clear auscultation bilaterally in all peña. CARDIAC: Regular rate and rhythm present. S1 and S2 are present. No S3, S4, murmur, rub, gallop or heave. There is no displacement of PMI or peripheral edema. GI: Soft, nontender, nondistended, bowel sounds present in all 4 quadrants. : Deferred SKIN: Without lesions, bruising, rash. Warm, pain with good turgor. NEURO: No focal deficits. Neurological status is grossly intact. EXTREMITIES: Tenderness to the right lower extremity of the hip and proxim
--- NOTE | 2024-05-03 10:59 | PM.CNOR ---
Assessment and Plan Assessment and plan (1) Periprosthetic fracture around internal prosthetic hip joint: Code(s): M97.8XXA - Periprosthetic fracture around other internal prosthetic joint, initial encounter; Z96.649 - Presence of unspecified artificial hip joint Status: Acute Plan anuja is here for f/u after a a fall to the right hip. she sustained a periprosthetic greater trochanter fracture with is non displaced. recommend toe touch weight bearing for 6 to eight weeks. goals now will be for pt to have her mobile and protected weight bearing. she will also need dvt prophylaxis with one adult strength aspirin for 3 weeks. she will f/u in 6 weeks in my office. we discussed the risks and complications of these fractures which include but are not limited to non union, mal union, dvt, pe and the need for further treatment such as surgical fixation. she understands and will proceed with recommended treatment plan. History of Present Illness HPI Consult date: 05/03/24 Chief complaint: Hip fracture Narrative: 73-year-old female patient with history of bilateral total hip arthroplasty 20 years ago fell yesterday onto her right hip. she was admitted to the er this last night with complaints of right hip pain after falling with her right knee flexed. she had pain and swelling. xrays in the er showed a non displaced ken prosthetic greater trochanter fracture. She any other trauma or pain or loss of consciousness. she denies any problem with her hip replacements and has not had any instability or dislocations. she deines any other extremity or back pain. I Review of Systems Review of Systems: All systems reviewed & are unremarkable except as noted in HPI and below PMFSH Past Medical History Medical History Fall Surgical History Surgical History H/O dilation and curettage History of hip replacement History of hip replacement Hx of tonsillectomy Shoulder joint replacement by other means Family History Family History Mother Family history of lung cancer, Onset Age: 78 Father Family history of type 2 diabetes mellitus, Onset Age: 63 Social History Social History Smoking status: Never smoker Alcohol intake: never Substance use: never Do You Feel Safe in your Home?: Yes Lack of Transportation: No Lack of Food: Never True Current Housing: I Have Housing Concerned About Future Housing: No Difficulty Paying Gas/Electric Bills: No Difficulty Paying for Meds: No Currently Unemployed: No Education: Trade/Vocational Certificate Difficulty w/ Childcare or Family Care: No Spiritual care concerns: No Meds Home Medications and Allergies Home Medications Medication Instructions Recorded Confirmed Type clobetasol 0.05 % topical cream 1 applic topical BID PRN psoriasis 08/05/19 05/03/24 History multivitamin 1 tablet PO DAILY 08/05/19 05/03/24 History tizanidine 4 mg capsule 4 mg PO TID PRN (Drug) Ingestion 08/05/19 05/03/24 History azelastine 0.05 % eye drops 1 drp EACH EYE DAILY 06/17/23 05/03/24 History hydroxyzine HCl 25 mg tablet 25 mg PO QHS 06/17/23 05/03/24 History losartan 25 mg tablet 25 mg PO DAILY #90 tabs 12/27/23 05/03/24 Rx ljwjhlf-qpjndtgeeg-CJG-caffeine 30 1 cap PO Q4H PRN headache #180 caps 01/24/24 05/03/24 Rx mg-50 mg-325 mg-40 mg capsule (Ascomp with Codeine) celecoxib 200 mg capsule (Celebrex) 200 mg PO BID #180 caps 04/06/24 05/03/24 Rx amitriptyline 25 mg tablet 25 mg PO QHS PRN Insomnia 05/03/24 05/03/24 History atenolol 25 mg tablet 25 mg PO QAM 05/03/24 05/03/24 History fluticasone propionate 50 2 spray intranasal QHS 05/03/24 05/03/24 History mcg/actuation nasal spray,suspension montelukast 10 mg tablet 10 mg PO QHS 05/03/2405/03/
[2024-05-03] MEDS: oxyCODONE HCL (*CRX) 5 MG TAB IR PO (11:18)
[2024-05-03] MEDS: CELECOXIB 200 MG CAPSULE PO (13:38)
[2024-05-03] MEDS: TIZANIDINE HCL 4 MG TABLET PO (13:38)
[2024-05-03] MEDS: LOSARTAN POTASSIUM 25 MG TABLET PO (13:39)
[2024-05-03] MEDS: atenoloL 25 MG TABLET PO (13:39)
[2024-05-03] MEDS: SERTRALINE HCL 50 MG TABLET 200 MG PO (13:39)
[2024-05-03] MEDS: MULTIVITAMINS THERAPEUTIC TAB (*BKC) 1 TABLET PO (13:39)
--- NOTE | 2024-05-03 14:14 | PM.DS ---
DS: Admitting Diagnosis Discharge Date 05/03 Admitting Diagnosis fall DS: Discharge Diagnosis Discharge Diagnosis (1) Hip fracture: Code(s): S72.009A - Fracture of unspecified part of neck of unspecified femur, initial encounter for closed fracture Status: Acute Assessment and Plan: Status post fall Consult orthopedics, Dr. Garcia P.r.n. pain meds P.r.n. antiemetics Bedrest Iverson catheter (2) Fall: Code(s): W19.XXXA - Unspecified fall, initial encounter Status: Acute Assessment and Plan: Mechanical as patient tripped over a bench at home. See plan for 1. Fall precautions (3) Gastro-esophageal reflux disease without esophagitis: Code(s): K21.9 - Gastro-esophageal reflux disease without esophagitis Status: Chronic Assessment and Plan: Protonix 40 mg daily ordered. (4) Mixed hyperlipidemia: Code(s): E78.2 - Mixed hyperlipidemia Status: Chronic Assessment and Plan: Heart healthy diet Resume home medications once verified by nursing staff. (5) Major depressive disorder, recurrent episode, mild with anxious distress: Code(s): F33.0 - Major depressive disorder, recurrent, mild Status: Chronic Assessment and Plan: Resume home medications once verified by nursing staff. DS: Summary Hospital Course Hospital Course: Fall Right hip pain Narrative retrieved from H/P: This very pleasant 73-year-old female patient with past medical history significant of bilateral total hip arthroplasties previously, seasonal allergies, HTN, Depression, Anxiety and GERD who presented to the emergency room this evening with complaints of sustaining a ground level fall at home when she tripped over 80 binge. Patient states she landed face forward with her right leg bent. She did not have any facial trauma or head trauma or loss of consciousness. Patient states since the fall she has had pain in her right hip which caused her to present to the emergency room for evaluation. In the emergency room workup was performed with x-ray of the hip and pelvis that demonstrated bilateral total hip arthroplasties with a 9 mm proximal destruction of a periprosthetic fracture of the right greater trochanter. Preliminary read of chest x-ray by myself indicates no acute cardiopulmonary abnormalities. Official read is pending. Labs were performed and CBC is unremarkable as is metabolic panel. ER physician discussed patient's case with orthopedic surgeon Dr. Garcia, who advised to admit and he will consult. Patient does not have any acute complaints at this time other than the pain in her right hip. 05/03- pt is seen and examined. Ortho is consulted. Pain is controlled. no n/v/d. ortho, Dr Garcia saw her and noted: recommend toe touch weight bearing for 6 to eight weeks. goals now will be for pt to have her mobile and protected weight bearing. she will also need dvt prophylaxis with one adult strength aspirin for 3 weeks. she will f/u in 6 weeks in my office. we discussed the risks and complications of these fractures which include but are not limited to non union, mal union, dvt, pe and the need for further treatment such as surgical fixation. she understands and will proceed with recommended treatment plan. Status at Discharge Functional status at discharge: independent ambulation ( toe touch weight bearing for 6 to eight weeks) Overall status at discharge: patient is back to baseline Time Spent with Patient Time attestation: Total time spent providing and/or coordinating discharge services: Time spent: Greater than 30 minutes Exam Narrative: CONSTITUTIONAL: Pleasant, elderly, female patient lying supine in this time on the stretcher in no acute distress. HEENT: Head is atraumatic and normocephalic. Nose and ears are symmetric about the face. Posterior oropharynx is clear without any erythema, edema or exudate. Are moist mucous membranes. EYES: P
== END 2024-05-03 15:20 | disposition home health service (06) | DRG 536 ==
LOC: ANHED 05-03 00:40 → ANH3MEDSUR 05-03 01:03
PROVIDERS: Admitting Provider Internal Medicine; Emergency Provider Emergency Medicine; PCP Emergency Medicine; Visit Provider Nurse Practitioner
DX: S72.114A Nondisplaced fracture of greater trochanter of right femur, initial encounter for closed fracture (principal); M97.01XA Periprosthetic fracture around internal prosthetic right hip joint, initial encounter; W01.190A Fall on same level from slipping, tripping and stumbling with subsequent striking against furniture, initial encounter; Z96.619 Presence of unspecified artificial shoulder joint; Z96.643 Presence of artificial hip joint, bilateral; F32.A Depression, unspecified; F41.9 Anxiety disorder, unspecified; I10 Essential (primary) hypertension; K21.9 Gastro-esophageal reflux disease without esophagitis; E78.2 Mixed hyperlipidemia
CPT/HCPCS: 36415; 71045; 73502; 80053; 81003; 85025; 93005; 96374; 97161; 97165; 97535; 99285; A9270; J1170; J1200

== ENCOUNTER 2024-11-11 10:20 | Outpatient (CLI) | payer MEDICARE, OTHER, SELFPAY ==
--- OUTSIDE RECORDS SUMMARY | 2024-11-11 11:44 | XMS_ITS | CONTINUITY OF CARE DOCUMENT ---
Author Name [email or web address] Address Unknown Organization [facility] Address [id number] [place] [address] [address] [place] [address] Phone [phone] Care Team Providers Care Lab Manager Name Role Phone Christiano ROSALES, Stacey Unavailable SAUL ROSALES, GERRI LIND Unavailable [phone] INSURANCE PROVID[employer] Payer name Policy type / Coverage type [place] red libertarian ID [facility] [employer] [id number]
--- OUTSIDE RECORDS SUMMARY | 2024-11-11 11:44 | XMS_ITS | Referral Summary ---
Author Organization [address] Address [address] [place] [address] Care Team Providers Care State Pilot Name Role Phone Aquiles Mirza MD Primary Care Provider [phone] Allergies No known active allergies Medications pantoprazole DR (PROTONIX) 40 mg EC tabletIndication s:gerd Take 1 tablet (40 mg total) by mouth nightly 3 Active simvastatin (ZOCOR) 20 mg tabletIndication s:hyperlipidemia Take 1 tablet (20 mg total) by mouth nightly 3 Active folic acid (FOLVITE) 1 mg tablet Take 1 tablet (1,000 mcg total) by mouth nightly 3 Active hydrOXYzine (ATARAX) 25 mg tabletIndication s:Allergic Dermatitis,hives Take 1 tablet (25 mg total) by mouth nightly 3 Active losartan (COZAAR) 25 mg tabletIndication s:hypertension Take 1 tablet (25 mg total) by mouth every morning 3 Active methotrexate 2.5 mg tabletIndication s:psoriasis/hive s Take 2 tablets (5 mg total) by mouth every 7 days Active fluticasone propionate (FLONASE) 50 mcg/actuation nasal sprayIndications :Allergic Rhinitis Administer 1 spray into each nostril nightly Active montelukast (SINGULAIR) 10 mg tabletIndication s:Seasonal Allergic Rhinitis Take 1 tablet (10 mg total) by mouth nightly Active atenoloL (TENORMIN) 25 mg tabletIndication s:hypertension Take 1 tablet (25 mg total) by mouth every morning Active TiZANidine (ZANAFLEX) 4 mg capsule Take 1 capsule (4 mg total) by mouth nightly Active clobetasoL (TEMOVATE) 0.05 % ointment Apply topically as needed Liquid for scalp Active ALPRAZolam (XANAX) 0.5 mg tablet Take 1 tablet (0.5 mg total) by mouth as needed FOR AIR TRAVEL ONLY Active amoxicillin 500 mg tablet/capsule Take 1 tablet/capsule (500 mg total) by mouth as needed Active azelastine (ASTELIN) 137 mcg (0.1 %) nasal spray Administer 1 spray into each nostril nightly Active calcipotriene (DOVONOX) 0.005 % cream Apply topically as needed BREAK OUT Active cetirizine (ZyrTEC) 10 mg tablet Take 1 tablet (10 mg total) by mouth every morning Active desoximetasone (TOPICORT) 0.25 % cream Apply topically 2 (two) times a day as needed Active fluocinonide (LIDEX) 0.05 % cream Apply topically as needed Active multivitamin capsule Take 1 capsule by mouth every morning Active calcium carbonate 500 mg calcium (1,250 mg) capsule Take 1 capsule (1,250 mg total) by mouth every morning Active turmeric, bulk, 95 % powder every morning Acti ve glucosamine HCl 1,500 mg tablet Take by mouth every morning Active Lactobacillus acidophilus (Probiotic) 10 billion cell capsule Take by mouth every morning Active ascorbic acid (vitamin C) 1,000 mg tablet Take 1 tablet (1,000 mg total) by mouth every morning Active RHUBARB ROOT EXTRACT ORAL Take by mouth every morning Active omega-3 fatty acids (FISH OIL CONCENTRATE ORAL) Take by mouth every morning Active oxyCODONE (ROXICODONE) 5 mg immediate release tabletIndication s:Pain Take 1 tablet (5 mg total) by mouth every 4 (four) hours as needed for pain for up to 42 doses 42 tablet 3 Active docusate sodium (COLACE) 100 mg capsuleIndicatio ns:constipation Take 1 capsule (100 mg total) by mouth 2 (two) times a day 30 capsule 3 Active acetaminophen 500 mg capsuleIndicatio ns:Pain Take 2 capsules (1,000 mg total) by mouth every 6 (six) hours 120 tablet 3 Active aspirin 81 mg enteric coated tablet Take 1 tablet (81 mg total) by mouth 2 (two) times a day for 28 doses 28 tablet 3 Active sertraline (ZOLOFT) 100 mg tabletIndication s:Anxiety with Depression Take 1 tablet (100 mg total) by mouth 2 (two) times a day 3 Active meloxicam (MOBIC) 15 mg tablet Take 1 tablet (15 mg total) by mouth daily 30 tablet 4 Active Active Problems Problem Noted Date Diagnosed Date Glenohumeral arthritis, left 05/24/2023 Osteoarthritis of glenohumeral joint, left 04/22 Social History Tobacco Use Types Packs/Day Years Used Date Smoking Tobacco: Never Smokeless Tobacco: Never AUDIT-C Answer Date Recorded Q1: How often do you have a drink containing alc ohol? 2-4 times a month 05/15/2023 Q2: How many drinks containi ng alcohol do you have on a typical day when you are drinking? 1 or 2 05/15/2023 Q3: How often do you have si x or more drinks on one occasion? Never 05/15/2023 Personal Safety Answer Date Recorded Have you ever been in or are you currently in a harmful physical or emotional relationship or is someone making you feel afraid or unsafe? Denies 05/10/2024 Comments Unknown Sex and Gender Information Value Date Recorded Sex Assigned at Not on file Legal Sex Female 11:02 AM CDT Gender Identity Not on file Sexual Orientation Not on file Last Filed Vital Signs Vital Sign Reading Time Taken Comments Blood Pressure 121/68 05/10/2024 5:00 PM CDT Pulse 69 05/10/2024 5:00 PM CDT Temperature 36.8 C (98.2 F) 05/10/2024 2:16 PM CDT Respiratory Rate 16 05/10/2024 5:00 PM CDT Oxygen Saturation 92% 05/10/2024 5:00 PM CDT Inhaled Oxygen Concentration - - Weight 70.3 kg (155 lb) 05/10/2024 2:16 PM CDT Height 167.6 cm (5' 6 ) 05/24/2023 7:33 AM CDT Body Mass Index 25.02 05/24/2023 7:33 AM CDT Plan of Treatment Not on file Medical Devices Implanted Type Area Wafer Mounter Device Identifier Shelf Expiration Date Model / Serial / Lot [employer] Simplex P Radiopaque Full Dose Cement Bone Sterile 6191-1-010 - [id number] Implanted:Qty: 1 on 05/24/2023 by Scott Mckeon MD at [facility] Bone Cement Left: Shoulder [employer] 03/01/2025 6191-1-01 0 / / [id number] Perform 40mm Peg Shoulder Small Component Glenoid All Poly [id number] - [id number] Implanted:Qty: 1 on 05/24/2023 by Scott Mckeon MD at [facility] Left: Shoulder [employer] 08/30/2027 [id number] / / [employer] Head Perform Cocr Modular Humeral [id number] - [id number] Implanted:Qty: 1 on 05/24/2023 by Scott Mckeon MD at [facility] Left: Shoulder [employer] 05/17/2026 [id number] / / [employer] Cooker Mechanic Perform Centered Modular Humeral Head Ti [id number] - [id number] Implanted:Qty: 1 on 05/24/2023 by Scott Mckeon MD at [facility] Left: Shoulder [employer] 05/04/2027 [id number] / / [employer] Stem Perform Sz 2 Humeral Dwx2ss - [id number] Implanted:Qty: 1 on 05/24/2023 by Scott Mckeon MD at [facility] Left: Shoulder [employer] 08/20/2027 [id number] / / Insurance MEDICARE [facility] MEDICARE [facility] MEDICARE [facility] Advance Directives For more information, please contact: [phone] * Full Code (Latest Code Status on File) Date Activated Date Inactivated Comments 05/24/2023 2:01 PM 05/25/2023 3:28 PM Care Teams State Pilot Relationship Specialty Start Date End Date Aquiles Mirza MD PCP - General Family Medicine 03/18/23
--- OUTSIDE RECORDS SUMMARY | 2024-11-11 11:44 | XMS_ITS | Continuity of Care Document ---
Author Organization [facility] Address [address] [place] [address] [place] [address] Phone Care Team Providers Care Seamless Tube Mill Operator Name Role Phone Ethan Calabrese MD, FACS Unavailable Unavailab le Allergies, Adverse Reactions, Alerts Substance Reaction Status Criticality No Known Allergies Active No Inform ation Medications Medication Instructions Dosage Effective Dates (start - stop) Status Comments erythromycin 5 mg/gram (0.5 %) eye ointment apply (1CM) by ophthalmic route 3 times every day ribbon into the lower conjunctival sac in the left eye 1 CM - Active Procedures Procedure Date Drainage Of Eyelid Abscess Office/outpatient Visit, [facility] Advance Directives Directive Yes / No Effective Date File Name No Information Encounters Encounter Description Practice Location Reason(s) For Visit Diagnoses Date Provider Providers Copied on Encounter [facility], [address] [place] [address] [address], [place], [place], [id number], [place] tel:[phone] SEC Sakina Sinha No Information 0 Bharati Long. [address] [place] [address], [address], [place], [place], [id number], [place]. tel:[phone] Office/outpa tient Visit, [facility], [address] [place] [address] [address], [place], [place], [id number], [place] [phone] SEC Cl[place] Professional bump (chief complaint) External chalazionAge- related nuclear cataract, bilateralArcu s senilis of both corneas 0 Junior Kumar. [address] [facility], [address], [place], [place], [address], [place]. tel:[phone] Referring Provider: Michael Esparza, [address] [facility], [place], [address]. tel:[phone] Family History Family Member Type Diagnosis Age At Onset Problem Family history of Diabetes m zbigniew Payers Payer name Insurance type Covered alliance party ID Authoriza tiaris(s) Medicare [facility] [id number] [facility] [id number] Social History Type Description Quantity Date Captured Comments Alcohol Use Details Unknown Caffeine Use Details Unknown Tobacco Use Status No Information Smoking Status No Information Sex Female Chief Complaint And Reason For Visit No Information Reason For Referral Reason For Referral No Information Plan Of Treatment Date Type Action Status Patient Education Pieter and Eugenio: Car e Instructions completed History Of Present Illness Encounter Date Complaint History Of Prese nt Illness bump The 69 year old female presents for evaluation of bump in the RUL. Patient states a week ago she had a stye developed on the DOREEN that turned into a bump patient would like it removed. Patient states she did use WC off and on. Functional Status Date Functional Assessmen t No Information Instructions Date Instruction Additional Infor mation Impression/Plan Assessments Type Assessment Date No Information Patient Care Teams Name Effective Dates (start - stop) Status Members No Information
--- OUTSIDE RECORDS SUMMARY | 2024-11-11 11:44 | XMS_ITS | Clinical Summary ---
Author Organization [facility] Address [address] [place] [address] Care Team Providers Care Recovery Engineer Name Role Phone Unavailable Primary Care Provider Unavailabl e Allergies No known active allergies Medications zoster vaccine recombinant, adjuvanted, RZV, (SHINGRIX) 50 mcg/0.5 mL Suspension for Reconstitution Inject 50 mcg/0.5 ml intramuscularly in deltoid muscle. 0.5 mL 1:25 PM CDT 01/25/20 22 Active Immunizations Immunization Administration Dates Next Due (SHINGRIX)(50 YRS UP) ZOSTER VACCINE RECOMBINANT, 0.5 ML, IM 01/24/2022 INFLUENZA VACCINE HIGH DOSE QUADRIVALENT 65 YR U P PF IM 06/27/2022 Social History Tobacco Use Types Packs/Day Years Used Date Smoking Tobacco: Never Assessed Comments Unknown Sex and Gender Information Value Date Recorded Sex Assigned at Not on file Legal Sex Female 1:16 PM CDT Gender Identity Not on file Sexual Orientation Not on file Plan of Treatment Health Maintenance Due Date Last Done Comments DTAP/TDAP/TD VACCINES (1 - Tdap) 1967 COLORECTAL SCREENING 1993 Colorectal Cancer Screening 1993 FIT-DNA Q 3 years 1993 FIT/FOBT Q 1 year 1993 Flex Sig/CT Colonography Q 5 years 1993 PNEUMOCOCCAL VACCINE 50+ YEARS (1 of 1 - PCV) 10/26/18 99 OSTEOPOROSIS SCREENING 2013 ZOSTER VACCINE (2 of 2) 03/21/2022 01/24/2022 RSV VACCINE (60+ or ) (1 - 1-dose 75+ series) 2023 INFLUENZA VACCINE (#1) 2024 06/27/2022 Insurance RX [facility] Medicare Part D RX [facility] Medicare Part D [facility] [employer] Medicare Part B
--- OUTSIDE RECORDS SUMMARY | 2024-11-11 11:44 | XMS_ITS | Clinical Summary ---
Author Organization [address] Address [address] [place] [phone] Care Team Providers Care Purchasing/Receiving Name Role Phone Aquiles Mirza MD Primary Care Provider [phone] Allergies No known active allergies Medications pantoprazole [...] 05/24/2023 Osteoarthritis of glenohumeral joint, left 04/22 Surgical History Surgery Date Site/Laterality Comments JOINT REPLACEMENT Medical History Medical History Date Comments GERD (gastroesophageal reflux disease) Anxiety Arthritis Osteoporosis Migraines Family History Medical History Relation Name Comments Anesthesia problems Daughter 1 awarenes s during hip replacement Anesthesia problems Daughter 2 awarenes s during hip replacement Arthritis Mother Urszula le Cancer Mother Urszula le Relation Name Status Comments Daughter 1 Alive Daughter 2 Alive Mother Urszula le Social History Tobacco Use Types Packs/Day Years [...] on file Sexual Orientation Not on file Obstetrics History Last Filed Vital Signs Vital Sign Reading [...] 05/24/2023 7:33 AM CDT Plan of Treatment Health Maintenance Due Date Last Done Comments Depression Screening 1948 Hepatitis C Screening 1948 Osteoporosis Screening-Bone Density Scan 1948 DTaP/Tdap/Td Vaccine (1 - Tdap) 1959 Hepatitis B Screening 1966 Pneumococcal vaccine 65+ (1 of 2 - PCV) 1967 Well Visit 65+ 2013 Covid-19 Vaccine (3 - Pfizer risk series) 01/23/2021 12/26/2020, 11/28/2020 Influenza Vaccine (#1) 2024 , 06/18/2019, 06/11/2018 Fall Risk Assessment 05/25/2024 05/25/2023 Zoster Vaccine Completed 12/01/2022, 01/24/2022 Medical Devices Implanted Type Area Equine Intern Device Identifier Shelf Expiration Date Model / Serial / Lot [employer] Simplex P Radiopaque Full Dose Cement Bone Sterile 6191-1-010 - [id number] Implanted:Qty: 1 on 05/24/2023 by Scott Mckeon MD at [facility] Bone Cement Left: Shoulder [employer] 03/01/2025 6191-1-01 0 / / [id number] [employer] Perform 40mm Peg Shoulder Small Component Glenoid All Poly [id number] - [id number] Implanted:Qty: 1 on 05/24/2023 by Scott Mckeon MD at [facility] Left: Shoulder [employer] 08/30/2027 [id number] / / [employer] Head Perform Cocr Modular Humeral [id number] - [id number] Implanted:Qty: 1 on 05/24/2023 by Scott Mckeon MD at [facility] Left: Shoulder [employer] 05/17/2026 [id number] / / [employer] Wood Filler Perform Centered Modular Humeral Head Ti [id number] - [id number] Implanted:Qty: 1 on 05/24/2023 by Scott Mckeon MD at [facility] Left: Shoulder [employer] 05/04/2027 [id number] / / [employer] Stem Perform Sz 2 Humeral Dwx2ss - [id number] Implanted:Qty: 1 on 05/24/2023 by Scott Mckeon MD at [facility] Left: Shoulder [employer] 08/20/2027 [id number] / / Insurance MEDICARE [facility] MEDICARE [employer] [facility] [place] [facility] MEDICARE [employer] [facility] [place] [facility] Advance Directives For more information, please contact: [phone] * Full Code (Latest Code Status on File) Date Activated Date Inactivated Comments 05/24/2023 2:01 PM 05/25/2023 3:28 PM Care Teams Purchasing/Receiving Relationship Specialty Start Date End Date Aquiles Mirza MD PCP - General Family Medicine 03/18/23
--- OUTSIDE RECORDS SUMMARY | 2024-11-11 11:44 | XMS_ITS | Clinical Summary ---
Author Organization [facility] Address [address] [place] [address] Care Team Providers Care Abstracter Name Role Phone Brianne Celestin BOX SPRING MAKER Primary Care Provider [phone] Social History Tobacco Use Types Packs/Day Years Used Date Smoking Tobacco: Never Assessed Comments Unknown Sex and Gender Information Value Date Recorded Sex Assigned at Female 11/04/2024 11:58 AM JUNIOR DATABASE ADMINISTRATOR Legal Sex Female 11:56 AM JUNIOR DATABASE ADMINISTRATOR Gender Identity Not on file Sexual Orientation Not on file Plan of Treatment Upcoming Encounters Date Type Department Care Team (Late st Contact Info) Description 12/07/2024 10:40 AM CDT Office Visit [facility] [address] [place], [place] [id number] Isaias Garcia MD [address] [place] [address] Health Maintenance Due Date Last Done Comments Hepatitis C 1966 DTaP, Tdap and Td Vaccines ( 1 - Tdap) 1967 Zoster Vaccines (1 of 2) 1998 Annual Medicare Wellness Visit 2013 Dexa Scan (General) 2013 Pneumococcal Vaccine: 65+ Ye ars (1 of 1 - PCV) 2013 RSV Immunization or 60+ Years (1 - 1-dose 75+ series) 2023 COVID-19 Vaccine ( - 2023-2 5 season) 2024 Influenza Adult (#1) 2024 Meningococcal B Vaccine Aged Out No l onger eligible based on patient's age to complete this topic Meningococcal Vaccine Aged Out No tyree mira eligible based on patient's age to complete this topic RSV Immunizations Under 20 Months Aged Out No longer eligible based on patient's age to complete this topic [place] [address] MEDICARE [facility] [place] [address] Care Teams Abstracter Relationship Specialty Start Date End Date Brianne Celestin, BOX SPRING MAKER [address] [place] [address] PCP - General Nurse Practitioner Family 11/04/24
[2024-11-11 13:22] LABS: Basophils Percent Auto 0.4 % (0.2-1.2); Eosinophils Absolute Auto 0.1 K/mm3 (0-0.3); Hematocrit 36.8 % (37.0-47.0); Hemoglobin 11.6 g/dL (12.0-15.0); Immature Granulocyte Absolute 0.01 K/mm3 (0.00-0.031); Immature Granulocyte Percent A 0.2 % (0-0.5); Lymphocytes Absolute Auto 1.43 K/mm3 (0.9-3.2); Mean Corpuscular HGB Conc 31.5 g/dl (32-36); Mean Corpuscular Hemoglobin 26.6 pg (26-34); Mean Corpuscular Volume 84.4 fl (80-100); Mean Platelet Volume 9.4 fl (7.4-10.4); Monocytes Absolute Auto 0.6 K/mm3 (0.1-0.6); Neutrophils Percent Auto 58.4 % (45.5-73.1); Platelet Count Result 269 k/mm3 (150-375); Red Blood Count 4.36 M/mm3 (4.2-5.4); Red Cell Distribution Width 15.9 % (11.5-14.5); White Blood Count 5.1 K/mm3 (4.5-10.0)
[2024-11-11 13:49] LABS: Alanine Aminotransferase 17 U/L (6-35); Albumin Level 4.1 g/dL (3.5-5.1); Alkaline Phosphatase 151 U/L (38-126); Anion Gap 9 mmol/L (4-12); Aspartate Amino Transferase 34 U/L (14-36); Bilirubin,Total 0.4 mg/dL (0.2-1.3); Blood Urea Nitrogen 12 mg/dL (7-17); Calcium 9.6 mg/dL (8.4-10.2); Carbon Dioxide 30 mmol/L (22-30); Chloride 103 mmol/L (98-107); Estimated Glomerular Filt Rate > 60; Glucose 114 mg/dL (65-110); Potassium 4.5 mmol/L (3.4-5.0); Sodium 142 mmol/L (137-145)
[2024-11-11 17:07] LABS: Hemoglobin A1C 6.1 % (<5.7)
== END 2024-11-11 10:21 | disposition home or self-care (01) ==
LOC: ANHGOSHLAB 10:22
PROVIDERS: PCP Nurse Practitioner Family; Visit Provider Nurse Practitioner Family
DX: M25.50 Pain in unspecified joint (principal); E11.9 Type 2 diabetes mellitus without complications; E78.2 Mixed hyperlipidemia
CPT/HCPCS: 36415; 80053; 83036; 85025

== ENCOUNTER 2025-06-17 09:27 | Outpatient (CLI) | payer MEDICARE, OTHER, SELFPAY ==
--- NOTE | ~2025-06-17 | MM_ITS ---
EXAMINATION: MM screening shivani BI w collin HISTORY: Screening TECHNIQUE: Craniocaudal and mediolateral oblique 3-D tomosynthesis images were obtained and synthetic 2-D images were generated. CAD analysis was submitted and interpreted. COMPARISON: 03/07/2022 BREAST PARENCHYMAL COMPOSITION: There are scattered areas of fibroglandular density. FINDINGS: There is no evidence of suspicious mass, calcification, or architectural distortion to suggest malignancy. There has been no suspicious interval change. IMPRESSION: 1. No mammographic evidence of malignancy. Recommend routine screening mammography in one year. BI-RADS Category 2: Benign finding(s) Reviewed, dictated and finalized at location Q. IMPRESSION: 1. No mammographic evidence of malignancy. Recommend routine screening mammogra phy in one year. BI-RADS Category 2: Benign finding(s)
--- OUTSIDE RECORDS SUMMARY | 2025-06-17 10:24 | XMS_ITS | Clinical Summary ---
Author Organization [facility] Address [address] [facility] [place] [address] Care Team Providers Care Emergency Generator Mechanic Name Role Phone Unavailable Primary Care Provider Unavailabl e Source Comments [facility],non-owned Affiliates and Associated Physician Practices is amultiple site organization consisting of ambulatory clinics and hospital sitesin [place], [place], [place] and [place]. This disclosure is being madepursuant to the Care Everywhere program and may not contain all information available regarding this patient. Last updated 18.[facility] Social History Tobacco Use Types Packs/Day Years Used Date Smoking Tobacco: Never Assessed Comments Unknown Sex and Gender Information Value Date Recorded Sex Assigned at Not on file Legal Sex Female 1:16 PM CDT Gender Identity Not on file Sexual Orientation Not on file Plan of Treatment Upcoming Encounters Date Type Department Care Team (Late st Contact Info) Description 07/19/2025 2:20 PM NEWSAGENT Office Visit [facility] Orthoped[facility] [id number] [place] [phone] [place] [address] [address] Health Maintenance Due Date Last Done Comments BONE DENSITY TESTING 1948 HEPATITIS C SCREENING 10/22/1966 DTAP/TDAP/TD VACCINES (1 - Tdap) 1967 PNEUMOCOCCAL VACCINE 50+ (1 of 1 - PCV) 1998 ZOSTER VACCINE (1 of 2) 1998 Respiratory Syncytial Virus (RSV) Vaccine Pt: or over 60 yrs (1 - 1-dose 75+ series) 2023 DEPRESSION SCREENING 09/02/2024 COVID-19 VACCINE (1 - 2023-2 5 season) 2025 INFLUENZA VACCINE (#1) 2025 HEPATITIS B VACCINE Aged Out No longe r eligible based on patient's age to complete this topic HIB VACCINE Aged Out No longer eligi ble based on patient's age to complete this topic HPV VACCINE Aged Out No longer eligi ble based on patient's age to complete this topic MENINGOCOCCAL (Group B) VACC INE SHARED DECISION-MAKING Aged Out No longer eligibl e based on patient's age to complete this topic MENINGOCOCCAL GROUPS A/C/Y/W VACCINE Aged Out No longer eligible b ased on patient's age to complete this topic
--- OUTSIDE RECORDS SUMMARY | 2025-06-17 10:24 | XMS_ITS | Clinical Summary ---
Author Organization [address] Address [address] [place] [id number] Care Team Providers Care Tinning Equipment Tender Name Role Phone Aquiles Mirza MD Primary Care Provider [phone] Allergies Active Allergy Reactions Criticality Noted Date Comments Hydromorphone Itching Low 05/03/2024 Naproxen Unknown 05/02/[address] (PROTONIX) 40 mg EC tabletIndication s:gerd Take 1 tablet (40 mg total) by mouth nightly 3 Active simvastatin (ZOCOR) 20 mg tabletIndication s:hyperlipidemia Take 1 tablet (20 mg total) by mouth nightly 3 Active hydrOXYzine (ATARAX) 25 mg tabletIndication s:Allergic Dermatitis,hives Take 1 tablet (25 mg total) by mouth nightly 3 Active losartan (COZAAR) 25 mg tabletIndication s:hypertension Take 1 tablet (25 mg total) by mouth every morning 3 Active fluticasone propionate (FLONASE) 50 mcg/actuation nasal [...] as needed FOR AIR TRAVEL ONLY Active azelastine (ASTELIN) 137 mcg (0.1 %) [...] ORAL) Take by mouth every morning Active sertraline (ZOLOFT) 100 mg tabletIndication s:Anxiety with Depression Take 1 tablet (100 mg total) by mouth 2 (two) times a day 3 Active HYDROcodone-acet aminophen (NORCO) 5-325 mg per tabletIndication s:Pain Take 1 tablet by mouth every 6 (six) hours as needed for pain 15 tablet 5 Active Additional Information Patient not taking.Reported on 05/12/2025 acetaminophen-co deine (TYLENOL with CODEINE #3) 300-30 mg per tablet Take 1 tablet every 6 hours by oral route for 14 days. Active amitriptyline (ELAVIL) 25 mg tablet TAKE 1 TABLET BY MOUTH EVERY DAY AT BEDTIME NEEDED FOR INSOMNIA Active celecoxib (CeleBREX) 400 mg capsule Take by mouth daily 5 Active Ascomp with codeine per capsule TAKE 1 CAPSULE BY MOUTH EVERY 4 HOURS NEEDED FOR HEADACHES 5 Active CURCUMIN, BULK, MISC by other route daily Active lifitegrast (Xiidra) 5 % dropperette INSTILL ONE DROP IN EACH EYE EVERY 12 HOURS 5 Active methylPREDNISolo ne (MEDROL DOSEPACK) 4 mg Dosepack TAKE 6 TABLETS ON DAY 1 DIRECTED ON PACKAGE AND DECREASE BY 1 TAB EACH DAY FOR A TOTAL OF 6 DAYS 5 Active neomycin-polymyx in B-dexAMETHasone (MAXITROL) 3.5 mg/g-10,000 unit/g-0.1 % ointment APPLY SPARINGLY TO LID MARGINS AT ROOT OF LASHES 2 TIMES A DAY Active neomycin-polymyx in-dexAMETHasone (MAXITROL) 3.5mg/mL-10,000 unit/mL-0.1 % ophthalmic suspension INSTILL 1 DROP INTO EACH EYE THREE TIMES DAILY FOR 14 DAYS Active ondansetron (ZOFRAN) 4 mg tablet TAKE 1 TABLET BY MOUTH THREE TIMES A DAY FOR 5 DAYS Active triamcinolone (KENALOG) 0.1 % cream Apply topically 2 (two) times a day 5 Active clobetasoL (TEMOVATE) 0.05 % external solution APPLY TOPICALLY TWICE A DAY NEEDED FOR RASH 5 Active tiZANidine (ZANAFLEX) 4 mg tablet Take 1 tablet (4 mg total) by mouth every 8 (eight) hours as needed 5 Active predniSONE (DELTASONE) 10 mg tablet pack Activ e Active Problems Problem Noted Date Diagnosed Date Failure of right total hip arthroplasty 06/14/20 25 Acute intractable headache 05/12/2025 Arthralgia 05/12/2025 Cervical spondylosis without myelopathy 05/12/20 25 Chronic pain 05/12/2025 Fall 05/12/2025 Gastro-esophageal reflux disease without esophag itis 05/12/2025 Hip fracture 05/12/2025 Ingrown toenail 05/12/2025 Low back pain 05/12/2025 Lumbar spondylosis with myelopathy 05/12/2025 Major depressive disorder, r ecurrent episode, mild with anxious distress 05/12/2025 Malaise and fatigue 05/12/2025 Mixed hyperlipidemia 05/12/2025 Neck pain 05/12/2025 Olecranon bursitis 05/12/2025 Periprosthetic fracture arou nd internal prosthetic hip joint 05/12/2025 Rib pain 05/12/2025 Sciatica 05/12/2025 T2DM (type 2 diabetes mellitus) 05/12/2025 Tension headache 05/12/2025 Osteoarthritis of left shoulder 05/12/2025 Osteoarthrosis, forearm 05/12/2025 Glenohumeral arthritis, left 05/24/2023 Osteoarthritis of glenohumeral joint, left 04/22 Encounters Date Type Department Care Team Description 05/12/2025 12:25 PM CDT Lab [facility] [address] [place] [id number] Right hip pain; Hx of total hip arthroplasty, right 05/12/2025 11:57 AM CDT - 05/12/2025 11:59 PM CDT Hospital Encounter [facility] [address] [place] [address] [address] [phone] Right hip pain; Hx of total hip arthroplasty, right Discharge Disposition: Discharge to home or self care 05/12/2025 10:15 AM CDT Office Visit [facility] Medicine Orthopaedic Surgery [address] [place] [address] Medical Office Building [address] [place] [address] Mari Obando MD Right hip pain (Primary Dx); Hx of total hip arthroplasty, right 05/12/2025 9:45 AM CDT - 05/12/2025 11:59 PM CDT Hospital Encounter [facility] [address] [place] [address] [address] [place] [phone] Right hip pain Discharge Disposition: Discharge to home or self care from Last 3 Months Immunizations Immunization Administration Dates Next Due H1N1 All Forms 10/13/2009 Influenza, Quad, Adjuvantate d, Intramuscular 06/15/2021 Influenza, Quadrivalent, Hig h Dose, Preservative Free, Intrr 06/27/2022,06/11/2018 Influenza, Quadrivalent, Spl it, Pediatric, Preservative Free, Intramuscular 06/11/2018 Influenza, Trivalent, Adjuva nted, Intramuscular 06/18/2019 Influenza, Trivalent, IM (MDV) 0,05/01/2017,06/21/2011,06/21,08/31/2009,07/18/2007 Pneumococcal Conjugate PCV 13 06/23/2015 Pneumococcal Polysaccharide PPV23 05/01/2017 Td, Not Adsorbed 06/17/2023,01/14/1998 Tdap 10/19/2008 ZOSTER LIVE 12/16/2008 ZOSTER Recombinant 12/01/2022,01/24/2022 Surgical History Surgery Date Site/Laterality Comments JOINT REPLACEMENT HIP SURGERY Medical History Medical History Date Comments GERD [...] making you feel afraid or unsafe? Denies 03/09/2025 Comments Unknown Sex and Gender Information Value Date Recorded Sex Assigned at Not on file Legal Sex Female 11:02 AM CDT Gender Identity Not on file Sexual Orientation Not on file Obstetrics History Last Filed Vital Signs Vital Sign Reading Time Taken Comments Blood Pressure 132/65 03/09/2025 7:00 PM CDT Pulse 67 03/09/2025 7:45 PM CDT Temperature 36.6 C (97.8 F) 03/09/2025 3:44 PM CDT Respiratory Rate 17 03/09/2025 7:45 PM CDT Oxygen Saturation 94% 03/09/2025 7:45 PM CDT Inhaled Oxygen Concentration - - Weight 70.3 kg (155 lb) 03/09/2025 3:44 PM CDT Height 167.6 cm (5' 6) 03/09/2025 3:44 PM CDT Body Mass Index 25.02 03/09/2025 3:44 PM CDT Plan of Treatment Upcoming Encounters Date Type Department Care Team (Latest Contact Info) Description 07/19/2025 10:00 AM HOSE MAKER Hospital Encounter [facility] Operating Room [address] [address] [address] Mari Obando MD [address] [facility] MG 6A/6B/12A [place] [address] 07/19/2025 10:00 AM HOSE MAKER - 07/19/2025 1:00 PM HOSE MAKER Surgery [facility] Operating Room [address] [address] [address] Mari Obando MD [address] [facility] [address] 6A/6B/12A [place] [address] RIGHT REVISION ARTHROPLASTY TOTAL HIP CUP ONLY Scheduled Procedures Name Priority Associated Diagnoses Date/Ti me REVISION ARTHROPLASTY TOTAL HIP Failure of right total hip arthroplasty, initial encounter 07/19/2025 10:00 AM HOSE MAKER Health Maintenance Due Date Last Done Comments Albumin Creatinine Ratio, Urine 1948 Depression Screening 1948 Hemoglobin A1C 1948 Hepatitis C Screening 1948 Osteoporosis Screening-Bone Density Scan 1948 Dilated Eye Exam 1948 Foot Exam 1948 Lipid Panel 1948 Hepatitis B Screening 1966 Well Visit 65+ 2013 Fall Risk Assessment 05/25/2024 05/25/2023 eGFR 05/25/2024 05/25/2023, 05/15/2023 Covid-19 Vaccine (2024-2 6 season) 2025 12/26/2020, 11/28/2020 Influenza Vaccine (#1) 2025 2, 06/15/2021, 05/30/2020, Additional history exists DTaP/Tdap/Td Vaccine (3 - Td or Tdap) 06/17/2033 06/17/2023, 10/19/2008, 01/14/1998 Pneumococcal vaccine 65+ Completed 05/01/2017, 06/03 Zoster Vaccine Completed 12/01/2022, 01/01, 12/16/2008 Medical Devices Implanted Type Area Commercial Loan Specialist Device Identifier Shelf Expiration Date Model / Serial / Lot [employer] Simplex P Radiopaque Full Dose Cement Bone Sterile 6191-1-010 - [id number] Implanted:Qty: 1 on 05/24/2023 by Scott Mckeon MD at [facility] Bone Cement Left: Shoulder [employer] 03/01/2025 6191-1-01 0 / / [id number] [employer] Perform 40mm Peg Shoulder Small Component Glenoid All Poly [id number] - [id number] Implanted:Qty: 1 on 05/24/2023 by Scott Mckeon MD at [facility] Left: Shoulder [employer] 08/30/2027 [id number] / / [employer] Head Perform Cocr Modular Humeral [id number] - [id number] Implanted:Qty: 1 on 05/24/2023 by Scott Mckeon MD at [facility] Left: Shoulder [employer] 05/17/2026 [id number] / / [employer] Rockboard Lather Perform Centered Modular Humeral Head Ti [id number] - [id number] Implanted:Qty: 1 on 05/24/2023 by Scott Mckeon MD at [facility] Left: Shoulder [employer] 05/04/2027 [id number] / / [employer] Stem Perform Sz 2 Humeral [id number] - [id number] Implanted:Qty: 1 on 05/24/2023 by Scott Mckeon MD at [facility] Left: Shoulder [employer] 08/20/2027 [id number] / / Procedures Procedure Name Priority Date/Time Associated Diagnosis Comments ERYTHROCYTE SEDIMENTATION RATE Routine 05/12/2025 12:32 PM CDT Right hip pain Hx of total hip arthroplasty, right CRP (ACUTE PHASE) Routine 05/12/2025 12: 32 PM CDT Right hip pain Hx of total hip arthroplasty, right XR FEMUR RIGHT 2 OR MORE VIEWS Schedule Routine, Read Routine (OP Routine) 05/12/2025 12:14 PM CDT Right hip pain Hx of total hip arthroplasty, right XR HIP RIGHT W PELVIS 2 OR 3 VIEWS Schedule Routine, Read Routine (OP Routine) 05/12/2025 10:07 AM CDT Right hip pain EGFR Routine 05/25/2023 4:11 AM CDT from Last 3 Months or Most Recently Relevant to Health Maintenance Results * Erythrocyte sedimentation rate (05/12/2025 12:32 PM CDT) Pathologist [facility] Erythrocyte sedimentation rate 19 1 - 30 mm/hr Blood 05/12/2025 12:3 2 PM CDT 05/12/2025 1:37 PM CDT Mari Brunner MD LAB BLOOD ORDERABLES Final Result Performing Organization Address [facility] Co de Phone Number [facility] [address] [place] [facility] [place] [address] * CRP (acute phase) (05/12/2025 12:32 PM CDT) Pathologist [facility] CRP 4.3 <=10.0 mg/L Blood 05/12/2025 12:3 2 PM CDT 05/12/2025 1:37 PM CDT Mari Brunner MD LAB BLOOD ORDERABLES Final Result Performing Organization Address [facility] Co de Phone Number [facility] [address] [employer] [facility] [place] [place] [address] * XR Femur Right 2 or More Views (05/12/2025 12:14 PM CDT) Anatomical Region Laterality Modality Lower Extremities, Thigh, Femur Right Computed Radiography 05/12/2025 12:2 0 PM CDT Impressions 05/12/2025 12:20 PM CDT 1. Unchanged right total hip arthroplasty in near-anatomic position with periprosthetic greater trochanter fracture also appears unchanged Electronically signed by: Sheryl Barrett MD Narrative 05/12/2025 12:20 PM CDT EXAMINATION: XR FEMUR RIGHT 2 OR MORE VIEWS HISTORY: Right hip pain FINDINGS: 4 radiographs of the right femur are compared to earlier radiographs from the same date of the right hip. Right total hip arthroplasty in near-anatomic position. Unchanged greater trochanter periprosthetic fracture. No new osteolysis. The bones are demineralized. No significant right knee joint effusion. Procedure Note Leah Barrett MD - 05/12/2025 EXAMINATION: XR FEMUR RIGHT 2 OR MORE VIEWS HISTORY: Right hip pain FINDINGS: 4 radiographs of the right femur are compared to earlier radiographs from the same date of the right hip. Right total hip arthroplasty in near-anatomic position. Unchanged greater trochanter periprosthetic fracture. No new osteolysis. The bones are demineralized. No significant right knee joint effusion. IMPRESSION: 1. Unchanged right total hip arthroplasty in near-anatomic position with periprosthetic greater trochanter fracture also appears unchanged Electronically signed by: Sheryl Barrett MD Mari Brunner MD IMG XR PROCEDURES Fin al Result * XR Hip Right 2 or 3 Views W Pelvis (05/12/2025 10:07 AM CDT) Anatomical Region Laterality Modality Lower Extremities, Hip, Pelvis Right C omputed Radiography 05/12/2025 10:4 0 AM CDT Impressions 05/12/2025 10:40 AM CDT Unchanged right total hip arthroplasty in expected position. Electronically signed by: Myke Denton M.D. Narrative 05/12/2025 10:40 AM CDT XR HIP RIGHT 2 OR 3 VIEWS W PELVIS HISTORY: Right hip pain. FINDINGS: 2 views of the pelvis and right hip are obtained and compared with 03/09/2025. There is redemonstrated right total hip arthroplasty. Unchanged mildly displaced periprosthetic greater trochanter fracture. Orthopedic components are in expected position. There is no periprosthetic osteolysis. Alignment is normal. Unchanged left total hip arthroplasty. Procedure Note Myke Denton MD - 05/12/2025 XR HIP RIGHT 2 OR 3 VIEWS W PELVIS HISTORY: Right hip pain. FINDINGS: 2 views of the pelvis and right hip are obtained and compared with 03/09/2025. There is redemonstrated right total hip arthroplasty. Unchanged mildly displaced periprosthetic greater trochanter fracture. Orthopedic components are in expected position. There is no periprosthetic osteolysis. Alignment is normal. Unchanged left total hip arthroplasty. IMPRESSION: Unchanged right total hip arthroplasty in expected position. Electronically signed by: Myke Denton M.D. Mari Brunner MD IMG XR PROCEDURES Fin al Result * eGFR (05/25/2023 4:11 AM CDT) eGFR 98 mL/min/1. 73 m2 RACHELLE COTO Comment: Interpretive Data Reference Interval Normal >/= 90 mL/min/1.73m2 Mildly decreased* 60 - 89 mL/min/1.73m2 Mildly to moderately decreased 45 - 59 mL/min/1.73m2 Moderately to severely decreased 30 - 44 mL/min/1.73m2 Severely decreased 15 - 29 mL/min/1.73m2 Kidney Failure < 15 mL/min/1.73m2 *Relative to young adult level Estimated glomerular filtration rate is determined by the 2020 CKD-EPI equation recommended by the National Kidney Foundation (A Unifying Approach to GFR Estimation: Recommendations of the NKF-ASK Task Force on Reassessing the Inclusion of Race in Diagnosing Kidney Disease, JASN 2020). The CKD-EPI equation should not be used for patients with unstable renal function and has not been validated in children and those over 70. Current interpretive data was last reviewed 2021. Blood 05/25/2023 4:11 AM CDT 05/25/2023 4:16 AM CDT Scott Mckeon MD LAB BLOOD ORDERAB LES Final Result [facility] [address] [facility]. [place] [address] from Last 3 Months or Most Recently Relevant to Health Maintenance Insurance MEDICARE [facility] MEDICARE [facility] MEDICARE [facility] Address: [address] [address] [facility] [place] [id number] Advance Directives For more information, please contact: [phone] * Full Code (Latest Code Status on File) Date Activated Date Inactivated Comments 05/24/2023 2:01 PM 05/25/2023 3:28 PM Care Teams Tinning Equipment Tender Relationship Specialty Start Date End Date Aquiles Mirza MD PCP - General Family Medicine 03/18/23
--- OUTSIDE RECORDS SUMMARY | 2025-06-17 10:24 | XMS_ITS | Clinical Summary ---
Author Organization [facility] Address [address] [facility] [place] [address] Care Team Providers Care Coroner Transport Technician Name Role Phone Unavailable Primary Care Provider [...] Comments DTAP/TDAP/TD VACCINES (1 - Tdap) 1967 PNEUMOCOCCAL VACCINE 50+ YEARS (1 of 1 - PCV) 10/26/18 99 OSTEOPOROSIS SCREENING 2013 ZOSTER VACCINE (2 of 2) 03/21/2022 01/24/2022 RSV VACCINE (60+ or ) (1 - 1-dose 75+ series) 2023 INFLUENZA VACCINE (#1) 2025 06/27/2022 Insurance RX [facility] Medicare Part D RX [facility] Medicare Part D RX [facility] DATA Medicare Part B
== END 2025-06-17 09:28 | disposition home or self-care (01) ==
LOC: ANHFOHIMG 09:27
PROVIDERS: PCP Nurse Practitioner Family; Visit Provider Obstetrics & Gynecology
DX: Z12.31 Encounter for screening mammogram for malignant neoplasm of breast (principal)
CPT/HCPCS: 77063; 77067